=== PATIENT | male | born 1975 | race Caucasian/White ===

== ENCOUNTER 2021-10-23 16:34 | Emergency (ER) | payer BC ==
--- NOTE | 2021-10-23 16:50 | EDM.PDOC ---
ED HPI GENERAL MEDICAL PROBLEM - General Chief Complaint: Respiratory Problem Stated Complaint: COVID + Time Seen by Provider: 10/23/21 16:50 Source of Information: Reports: Patient, Family History Limitations: Reports: No Limitations - History of Present Illness INITIAL COMMENTS - FREE TEXT/NARRATIVE: Julio César, 46-year-old male, presents with dry harsh cough, documented positive Covid and 18 October 2021. Symptoms started -17 October 2021 leading to a [facility] of which he has documentation being positive on the . Cough is worsened breathing issues being mildly compromised in his breathing aspect. Spouse is also +1-day prior with symptoms starting on the same day. Some abdominal GI symptoms have developed in the past 24 hours but are fairly well controlled at this time. Not COVID-19 vaccinated. He has had low-grade fever at times but nothing of significance. GI symptoms progressed in the past 24 hours. Onset Date: 10/17/21 Duration: Day(s): Location: Reports: Chest Quality: Reports: Pressure, Sharp Severity: Severe Improves with: Reports: None Worsens with: Reports: Movement Associated Symptoms: Reports: Cough, cough w sputum, Shortness of Breath - Related Data Allergies Allergy/AdvReac Type Severity Reaction Status Date / Time No Known Drug Allergies Allergy Cannot Verified 10/23/21 16:53 Remember Home Meds: Home Meds Codeine/guaiFENesin [Robitussin AC] 236 ml PO 6XDAY 10 Days #236 liquid 10/23/21 [Rx] Naproxen Sodium [Aleve] 220 mg PO TID PRN 10/23/21 [History] Past Medical History - Past Health History Medical/Surgical History: Denies Medical/Surgical History (Reviewed [place] [id number] chart with obesity the only problem list issue) - Infectious Disease History Infectious Disease History: Reports: Novel Coronavirus Social & Family History - Family History Family Medical History: No Pertinent Family History ED ROS GENERAL - Review of Systems Review Of Systems: See Below Constitutional: Reports: Fever, Malaise, Weakness HEENT: Reports: No Symptoms Respiratory: Reports: Shortness of Breath, Pleuritic Chest Pain, Cough Cardiovascular: Reports: No Symptoms. Denies: Chest Pain, Dyspnea on Exertion Endocrine: Reports: Fatigue GI/Abdominal: Reports: Diarrhea, Nausea, Vomiting : Reports: No Symptoms Musculoskeletal: Reports: No Symptoms Skin: Reports: No Symptoms Neurological: Reports: No Symptoms Psychiatric: Reports: No Symptoms Hematologic/Lymphatic: Reports: No Symptoms Immunologic: Reports: No Symptoms ED EXAM, GENERAL - Physical Exam Exam: See Below Free Text/Narrative:: Alert, oriented with no evidence of cyanosis nor pallor. Illnesses appreciated with a very harsh dry cough. HEENT is negative discharge or deformity with no icterus no injection. Tacky appearing oral membranes. Neck is soft supple no lymphadenopathy. Thorax is harsh, raspiness noted with no wheezes nor crackles appreciated but very limited as any deep breath induces cough. Cardiac is regular I do not appreciate murmur. Abdomen has bowel sounds noted with no specific tenderness feels irritated and cough induces discomfort. No flank pain is noted. There is no edema to the extremities he moves about with no complaint. #1 Interpretation EKG Date: 10/23/21 Time: 17:26 Rhythm: NSR Rate (Beats/Min): 86 [place]: LAD-Left [place] Deviation P-Wave: Present QRS: Normal ST-T: Normal QT: Normal Comparison: NA - No Prior EKG Course - Vital Signs Last Recorded V/S: Last Vital Signs Temp 100.2 F 10/23/21 21:41 Pulse 82 10/23/21 22:30 Resp 22 H 10/23/21 22:15 BP 102/68 10/23/21 22:30 Pulse Ox 92 L 10/23/21 22:30 - Orders/Labs/Meds Orders: Active Orders 24 hr Category Date Time Status Peripheral IV Care [RC] . DIRECTED Care 10/23/21 17:03 Active Vital Signs [RC] Q15M Care 10/23/21 20:46 Active EPINEPHrine [EPINEPHrine 1:10,000] Med 10/23/21 20:46 Active 0.3 mg IM ASDIRECTED PRN Famotidine [Pepcid] Med 10/23/21 20:46 Active 20 mg IVPUSH ASDIRECTED PRN Sodium Chloride 0.9% [Normal Saline] 50 ml Med 10/23/21 18:30 Active IV ASDIRECTED Sodium Chloride 0.9% [Saline Flush] Med 10/23/21 17:01 Active 10 ml FLUSH Q8HR PRN Sodium Chloride 0.9% [Saline Flush] Med 10/23/21 21:00 Active 30 ml FLUSH ASDIRECTED diphenhydrAMINE [Benadryl] Med 10/23/21 20:46 Active 50 mg IVPUSH ASDIRECTED PRN methylPREDNISolone Sod Succ [Solu-MEDROL] Med 10/23/21 20:46 Active 125 mg IVPUSH ASDIRECTED PRN Peripheral IV Insertion Adult [OM.PC] Stat Oth 10/23/21 17:02 Ordered EKG 12 Lead [EK] Stat Ther 10/23/21 17:02 Ordered Medication Orders Diphenhydramine HCl (Diphenhydramine 50 Mg/Ml Sdv) 50 mg IVPUSH ASDIRECTED PRN PRN Reason: hypersensitivity reaction Epinephrine HCl (Epinephrine 1:10,000 1 Mg/10 Ml Syringe) 0.3 mg IM ASDIRECTED PRN PRN Reason: hypersensitivity reaction Famotidine (Famotidine 20 Mg/2 Ml Sdv) 20 mg IVPUSH ASDIRECTED PRN PRN Reason: hypersensitivity reaction Sodium Chloride (Normal Saline) 50 mls @ 200 mls/hr IV ASDIRECTED ARUN Last Admin: 10/23/21 18:00 Dose: 200 mls/hr Documented by: TALITA Methylprednisolone Sodium Succinate (Methylprednisolone Sodium Succinate 125 Mg/2 Ml Sdv) 125 mg IVPUSH ASDIRECTED PRN PRN Reason: hypersensitivity reaction Sodium Chloride (Sodium Chloride 0.9% 10 Ml Syringe) 10 ml FLUSH Q8HR PRN PRN Reason: keep vein open Sodium Chloride (Sodium Chloride 0.9% 10 Ml Syringe) 30 ml FLUSH ASDIRECTED ARUN Labs: Laboratory Tests 10/23/21 10/23/21 10/23/21 Range/Units 17:10 17:10 17:10 WBC 4.25 L (5.00-10.00) 10^3/uL RBC 5.23 (4.50-6.00) 10^6/uL Hgb 15.6 (13.0-17.0) g/dL Hct 46.0 (40.0-52.0) % MCV 88.0 (82.0-92.0) fL MCH 29.8 (27.0-31.0) pg MCHC 33.9 (32.0-36.0) g/dL RDW 12.5 (11.5-14.5) % Plt Count 132 L (150-400) 10^3/uL MPV 8.9 (7.4-10.4) fL Immature Gran % (Auto) 0.0 (0.0-5.0) % Neut % (Auto) 76.7 H (50.0-70.0) % Lymph % (Auto) 18.4 L (20.0-40.0) % [place] % (Auto) 4.9 (2.0-8.0) % Eos % (Auto) 0.0 L (1.0-3.0) % Baso % (Auto) 0.0 (0.0-1.0) % Neut # (Auto) 3.26 (2.50-7.00) 10^3/uL Lymph # (Auto) 0.78 L (1.00-4.00) 10^3/uL [place] # (Auto) 0.21 (0.10-0.80) 10^3/uL Eos # (Auto) 0.00 L (0.10-0.30) 10^3/uL Baso # (Auto) 0.00 (0.00-0.10) 10^3/uL Immature Gran # (Auto) 0.00 (0.00-0.50) 10^3/uL D-Dimer, Quantitative (<400) ng/mL Sodium 138 (136-145) mmol/L Potassium 3.9 (3.5-5.1) mmol/L Chloride 98 (98-107) mmol/L Carbon Dioxide 28.7 (21.0-32.0) mmol/L Anion Gap 15.2 H (5-15) mmol/L BUN 13 (7-18) mg/dL Creatinine 1.01 (0.51-1.17) mg/dL Est Cr Clr Drug Dosing 109.23 mL/min Estimated GFR (MDRD) > 60 mL/min Glucose 93 (70-140) mg/dL Lactic Acid 0.8 (0.4-2.0) mmol/L Calcium 8.3 L (8.7-10.3) mg/dL Total Bilirubin 0.8 (0.2-1.0) mg/dL AST 50 H (15-37) U/L ALT 42 (14-63) U/L Alkaline Phosphatase 44 L (46-116) U/L Troponin I High Sens 9.700 (0-76.000) pg/mL Total Protein 7.5 (6.4-8.2) g/dL Albumin 3.69 (3.40-5.00) g/dL 10/23/21 Range/Units 17:10 WBC (5.00-10.00) 10^3/uL RBC (4.50-6.00) 10^6/uL Hgb (13.0-17.0) g/dL Hct (40.0-52.0) % MCV (82.0-92.0) fL MCH (27.0-31.0) pg MCHC (32.0-36.0) g/dL RDW (11.5-14.5) % Plt Count (150-400) 10^3/uL MPV (7.4-10.4) fL Immature Gran % (Auto) (0.0-5.0) % Neut % (Auto) (50.0-70.0) % Lymph % (Auto) (20.0-40.0) % [place] % (Auto) (2.0-8.0) % Eos % (Auto) (1.0-3.0) % Baso % (Auto) (0.0-1.0) % Neut # (Auto) (2.50-7.00) 10^3/uL Lymph # (Auto) (1.00-4.00) 10^3/uL [place] # (Auto) (0.10-0.80) 10^3/uL Eos # (Auto) (0.10-0.30) 10^3/uL Baso # (Auto) (0.00-0.10) 10^3/uL Immature Gran # (Auto) (0.00-0.50) 10^3/uL D-Dimer, Quantitative 946 H (<400) ng/mL Sodium (136-145) mmol/L Potassium (3.5-5.1) mmol/L Chloride (98-107) mmol/L Carbon Dioxide (21.0-32.0) mmol/L Anion Gap (5-15) mmol/L BUN (7-18) mg/dL Creatinine (0.51-1.17) mg/dL Est Cr Clr Drug Dosing mL/min Estimated GFR (MDRD) mL/min Glucose (70-140) mg/dL Lactic Acid (0.4-2.0) mmol/L Calcium (8.7-10.3) mg/dL Total Bilirubin (0.2-1.0) mg/dL AST (15-37) U/L ALT (14-63) U/L Alkaline Phosphatase (46-116) U/L Troponin I High Sens (0-76.000) pg/mL Total Protein (6.4-8.2) g/dL Albumin (3.40-5.00) g/dL Meds: Medications Generic Name Dose Route Start Last Admin Trade Name Freq PRN Reason Stop Dose Admin Diphenhydramine HCl 50 mg 10/23/21 20:46 Diphenhydramine 50 Mg/Ml Sdv IVPUSH ASDIRECTED PRN hypersensitivity reaction Epinephrine HCl 0.3 mg 10/23/21 20:46 Epinephrine 1:10,000 1 Mg/10 Ml Syringe IM ASDIRECTED PRN hypersensitivity reaction Famotidine 20 mg 10/23/21 20:46 Famotidine 20 Mg/2 Ml Sdv IVPUSH ASDIRECTED PRN hypersensitivity reaction Sodium Chloride 50 mls @ 200 mls/hr 10/23/21 18:30 10/23/21 18:00 Normal Saline IV 200 mls/hr ASDIRECTED ARUN Administration Methylprednisolone Sodium Succinate 125 mg 10/23/21 20:46 Methylprednisolone Sodium Succinate 125 Mg/2 Ml Sdv IVPUSH ASDIRECTED PRN hypersensitivity reaction Sodium Chloride 10 ml 10/23/21 17:01 Sodium Chloride 0.9% 10 Ml Syringe FLUSH Q8HR PRN keep vein open Sodium Chloride 30 ml 10/23/21 21:00 Sodium Chloride 0.9% 10 Ml Syringe FLUSH ASDIRECTED ARUN Discontinued Medications Generic Name Dose Route Start Last Admin Trade Name Freq PRN Reason Stop Dose Admin Acetaminophen 1,000 mg 10/23/21 21:10 10/23/21 21:41 Acetaminophen 500 Mg Tab PO 10/23/21 21:11 1,000 mg ONETIME ONE Administration Guaifenesin/Codeine Phosphate 5 ml 10/23/21 17:16 10/23/21 17:25 Codeine/Guaifenesin 10-100 Mg/5 Ml Syrup 5 Ml Cup PO 10/23/21 17:17 5 ml ONETIME ONE Administration Guaifenesin/Codeine Phosphate 5 ml 10/23/21 20:24 10/23/21 21:55 Codeine/Guaifenesin 10-100 Mg/5 Ml Syrup 5 Ml Cup PO 10/23/21 20:25 5 ml ONETIME ONE Administration Guaifenesin/Codeine Phosphate 5 ml 10/23/21 22:39 Codeine/Guaifenesin 10-100 Mg/5 Ml Syrup 5 Ml Cup PO 10/23/21 22:40 ONETIME ONE Sodium Chloride 1,000 mls @ 999 mls/hr 10/23/21 17:10 10/23/21 17:20 Normal Saline IV 10/23/21 18:10 999 mls/hr .BOLUS ONE Administration Bamlanivimab 700 mg/ 310 mls @ 310 mls/hr 10/23/21 20:46 10/23/21 21:05 Etesevimab 1,400 mg/ Sodium IV 10/23/21 21:45 310 mls/hr Chloride ONETIME ONE Administration Iopamidol 75 ml 10/23/21 18:20 10/23/21 18:00 Iopamidol 755 Mg/Ml 75 Ml Bottle IVPUSH 10/23/21 18:21 75 ml ONETIME ONE Administration - Re-Assessments/Exams Free Text/Narrative Re-Assessment/Exam: 10/23/21 17:52 Elevated D-dimer notified patient with chest x-ray findings elevated D-dimer and significance of his cough a CTA of the chest will be performed. Departure - Departure Time of Disposition: 20:23 Disposition: Home, Self-Care 01 Condition: Good Clinical Impression: Elevated d-dimer, SARS-CoV-2 positive, Cough, GI symptoms - Discharge Information *PRESCRIPTION DRUG MONITORING PROGRAM REVIEWED*: Not Applicable *COPY OF PRESCRIPTION DRUG MONITORING REPORT IN PATIENT ADRIA: Not Applicable Prescriptions: Codeine/guaiFENesin [Robitussin AC] 236 ml PO 6XDAY 10 Days #236 liquid Instructions: COVID-19: What to Do If You Are Sick- CDC (02/09/2021), COVID-19: Quarantine vs. Isolation - [facility] (11/11/2020) Referrals: Estrellita Tillman NP [Primary Care Provider] - Forms: ED Department Discharge Additional Instructions: He will be discharged from the emergency department. Your chest x-ray was positive as well as your CT for having Covid pneumonia. Your lab work is in reasonable standing with no significant evidence of bacterial infection. Due to your elevated D-dimer a scan was done ruling out a pulmonary embolus as the cause of your shortness of breath. You will be discharged and return as outpatient for monoclonal antibody testing which was discussed in detail with you here in the end department. In the event you oxygen saturation drops close to 90 you should carefully monitor that at home and in the event you drop below 90 consider contacting your clinic for instructions which may include reevaluation and or admission, or present to the emergency department if outside of clinic hours. You will be given a prescription for promethazine codeine to garbage pick up worker at your pharmacy tomorrow. Make sure you maintain good fluid intake. Sepsis Event Note (ED) - Focused Exam Vital Signs: Vital Signs Temp Temp Pulse Resp BP Pulse Ox 10/23/21 22:30 82 102/68 92 L 10/23/21 22:15 87 22 H 115/72 95 10/23/21 22:00 83 118/78 95 10/23/21 21:45 93 22 H 116/75 95 10/23/21 21:41 100.2 F 10/23/21 21:30 88 22 H 118/76 96 10/23/21 21:15 85 22 H 127/77 95 10/23/21 20:46 100.2 F 85 20 119/70 96 10/23/21 20:17 99.3 F 83 18 115/73 96 10/23/21 19:22 99.8 F 82 18 118/77 95 10/23/21 18:17 118/71 10/23/21 17:52 96 20 111/68 97 10/23/21 17:37 98.7 F 82 20 96/60 98 10/23/21 16:53 97.9 F 95 20 110/71 96 - Problem List & Annotations (1) SARS-CoV-2 positive SNOMED Code(s): 3335994689127444 Code(s): U07.1 - COVID-19 Status: Acute Current Visit: Yes (2) Cough SNOMED Code(s): 86864871 Code(s): R05.9 - COUGH, UNSPECIFIED Status: Acute Current Visit: Yes (3) GI symptoms SNOMED Code(s): 364790740 Code(s): R19.8 - OTH SYMPTOMS AND SIGNS INVOLVING THE DGSTV SYS AND ABDOMEN Status: Acute Current Visit: Yes (4) Elevated d-dimer SNOMED Code(s): 644691285 Code(s): R79.89 - OTHER SPECIFIED ABNORMAL FINDINGS OF BLOOD CHEMISTRY Status: Acute Priority: High Current Visit: Yes (5) Pneumonia due to COVID-19 virus SNOMED Code(s): 652303529231077933 Code(s): U07.1 - COVID-19; J12.82 - PNEUMONIA DUE TO CORONAVIRUS DISEASE 2019 Status: Acute Current Visit: Yes - Problem List Review Problem List Initiated/Reviewed/Updated: Yes - My Orders Last 24 Hours: My Active Orders 10/23/21 17:01 Sodium Chloride 0.9% [Saline Flush] 10 ml FLUSH Q8HR PRN 10/23/21 17:02 Peripheral IV Insertion Adult [OM.PC] Stat EKG 12 Lead [EK] Stat 10/23/21 17:03 Peripheral IV Care [RC] . DIRECTED 10/23/21 18:30 Sodium Chloride 0.9% [Normal Saline] 50 ml IV ASDIRECTED 10/23/21 20:46 Vital Signs [RC] Q15M EPINEPHrine [EPINEPHrine 1:10,000] 0.3 mg IM ASDIRECTED PRN Famotidine [Pepcid] 20 mg IVPUSH ASDIRECTED PRN diphenhydrAMINE [Benadryl] 50 mg IVPUSH ASDIRECTED PRN methylPREDNISolone Sod Succ [Solu-MEDROL] 125 mg IVPUSH ASDIRECTED PRN 10/23/21 21:00 Sodium Chloride 0.9% [Saline Flush] 30 ml FLUSH ASDIRECTED - Assessment/Plan Last 24 Hours: My Active Orders 10/23/21 17:01 Sodium Chloride 0.9% [Saline Flush] 10 ml FLUSH Q8HR PRN 10/23/21 17:02 Peripheral IV Insertion Adult [OM.PC] Stat EKG 12 Lead [EK] Stat 10/23/21 17:03 Peripheral IV Care [RC] . DIRECTED 10/23/21 18:30 Sodium Chloride 0.9% [Normal Saline] 50 ml IV ASDIRECTED 10/23/21 20:46 Vital Signs [RC] Q15M EPINEPHrine [EPINEPHrine 1:10,000] 0.3 mg IM ASDIRECTED PRN Famotidine [Pepcid] 20 mg IVPUSH ASDIRECTED PRN diphenhydrAMINE [Benadryl] 50 mg IVPUSH ASDIRECTED PRN methylPREDNISolone Sod Succ [Solu-MEDROL] 125 mg IVPUSH ASDIRECTED PRN 10/23/21 21:00 Sodium Chloride 0.9% [Saline Flush] 30 ml FLUSH ASDIRECTED Plan: He will be discharged from the emergency department. Your chest x-ray was positive as well as your CT for having Covid pneumonia. Your lab work is in reasonable standing with no significant evidence of bacterial infection. Due to your elevated D-dimer a scan was done ruling out a pulmonary embolus as the cause of your shortness of breath. You will be discharged and return as outpatient for monoclonal antibody testing which was discussed in detail with you here in the end department. In the event you oxygen saturation drops close to 90 you should carefully monitor that at home and in the event you drop below 90 consider contacting your clinic for instructions which may include reevaluation and or admission, or present to the emergency department if outside of clinic hours. You will be given a prescription for promethazine codeine to garbage pick up worker at your pharmacy tomorrow. Make sure you maintain good fluid intake.
[2021-10-23] MEDS ORDERED: Sodium Chloride 0.9% 10 ML Syringe FLUSH PRN (17:01)
[2021-10-23] MEDS ORDERED: Sodium Chloride 0.9% 1,000 ML IV ONE (17:10)
[2021-10-23] MEDS ORDERED: Codeine/guaiFENesin 10-100 MG/5 ML Syrup 5 ML Cup PO ONE ×3 (17:16→22:39)
[2021-10-23 17:42] LABS: ANION GAP 15.2 mmol/L (5-15); CHLORIDE,CL 98 mmol/L (98-107); SODIUM,NA 138 mmol/L (136-145)
--- NOTE | 2021-10-23 18:02 | CR ---
[id number] RAD/RAD Chest Portable EXAM: PORTABLE CHEST INDICATION: COVID+, SOB COMPARISON: None. DISCUSSION: Mild patchy bilateral infiltrates consistent with the clinical history of COVID pneumonia. Mild hypoinflation. Normal heart size. IMPRESSION: 1. Mild patchy bilateral infiltrates. Wilmer Lawson MD 10/23/21 [id number] Thank you for allowing us to participate in the care of your patient.
[2021-10-23] MEDS ORDERED: Iopamidol 755 Mg/ML 75 ML Bottle IVPUSH ONE (18:20)
[2021-10-23] MEDS ORDERED: Sodium Chloride 0.9% 50 ML IV SCH (18:30)
--- NOTE | 2021-10-23 19:13 | CT ---
[id number] CT/CTA Chest EXAM: CT ANGIOGRAM CHEST INDICATION: ELEVATED D DIMER, COVID POSITIVE, COUGH, SOB COMPARISON: Chest radiograph same date. DISCUSSION: The pulmonary arteries are normal in appearance with no emboli identified. Basal and peripheral predominant groundglass opacities some which has a mild degree of associated consolidation compatible the clinical history of COVID pneumonia. No pleural or pericardial effusion. Heart is at upper limits of normal for size. No thoracic adenopathy. Heterogeneous thyroid attenuation with possible small scattered nodules. IMPRESSION: 1. Multifocal peripheral predominant groundglass opacities compatible the clinical history of COVID pneumonia. 2. Negative for pulmonary embolism. Wilmer Lawson MD 10/23/21 [id number] Thank you for allowing us to participate in the care of your patient.
[2021-10-23] MEDS ORDERED: methylPREDNISolone Sodium Succinate 125 MG/2 ML SDV IVPUSH PRN (20:46)
[2021-10-23] MEDS ORDERED: diphenhydrAMINE 50 MG/ML SDV IVPUSH PRN (20:46)
[2021-10-23] MEDS ORDERED: EPINEPHrine 1:10,000 1 MG/10 ML Syringe IM PRN (20:46)
[2021-10-23] MEDS ORDERED: Famotidine 20 MG/2 ML SDV IVPUSH PRN (20:46)
[2021-10-23] MEDS ORDERED: Sodium Chloride 0.9% 10 ML Syringe FLUSH SCH (21:00)
[2021-10-23] MEDS ORDERED: Acetaminophen 500 MG Tab PO ONE (21:10)
== END 2021-10-23 23:55 | disposition home or self-care (01) ==
LOC: KA.ED 16:34
DX: U07.1 COVID-19 (principal); R79.89 Other specified abnormal findings of blood chemistry
CPT/HCPCS: 36415; 71045; 71275; 80053; 83605; 84484; 85025; 85379; 93010; 99284; 99284-25; A9270-GY; J7030; J7050; M0245; Q0245; Q9967